=== PATIENT | female | born 1960 | race Two or more races ===

== ENCOUNTER 2018-03-08 16:47 | Emergency (ER) | payer MEDICAID ==
[~2018-03-08] VITALS: Ht 149.9 cm; Wt 65.3 kg
[2018-03-08 17:08] VITALS: BP 182/81
[2018-03-08] MEDS ORDERED: Phenazopyridine 200mg tab ORAL ONE (17:15)
--- NOTE | 2018-03-08 17:26 | Emergency Room Report ---
History of Present Illness General Chief Complaint: Female Urogenital Problems Source: Patient, Family Member Present Illness HPI Patient is a 57-year-old female presented after increased urinary frequency. Patient reports having had history of diabetes. She denies any fever or vomiting. She denies any abdominal pain. Patient reports having increased urinary urgency and frequency. She reports having a blood sugar in the 400s earlier in the day. Allergies: Coded Allergies: No Known Allergies (Unverified , 03/08/18) Patient History Past Medical History: see triage record Last Menstrual Period: na Reviewed Nursing Documentation: PMH: Agreed; PSxH: Agreed Nursing Documentation-PMH Past Medical History: No History, Except For Hx Hypertension: Yes Hx Diabetes: Yes Review of Systems All Other Systems: negative except mentioned in HPI Physical Exam Vital Signs Date Time Temp Pulse Resp B/P (MAP) Pulse Ox O2 Delivery O2 Flow Rate FiO2 03/08/18 16:48 98.2 78 18 182/81 98 Room Air Sp02 EP Interpretation: reviewed, normal General Appearance: normal inspection, well appearing, no apparent distress, alert, GCS 15 Head: atraumatic ENT: normal ENT inspection, hearing grossly normal, normal voice Neck: normal inspection, full range of motion, supple, no bony tend Respiratory: normal inspection, lungs clear, normal breath sounds, no respiratory distress, no retraction, no wheezing Cardiovascular #1: regular rate, rhythm, no edema Gastrointestinal: normal inspection, normal bowel sounds, non tender, soft, no guarding, no hernia Genitourinary: no CVA tenderness, uterus normal, other - anterior vaginal wall cystocele Musculoskeletal: normal inspection, back normal, normal range of motion Neurologic: normal inspection, alert, responsive, speech normal Psychiatric: normal inspection, judgement/insight normal, mood/affect normal Skin: normal inspection, normal color, no rash Medical Decision Making Diagnostic Impression: Primary Impression: Diabetes Additional Impressions: Urinary tract infection Cystocele ER Course The patient was noted to have increased dysuria and urinary frequency. Differential diagnosis included wasn't limited to urinary retention, urinary infection, herpes among others. Urinalysis showed evidence of urinary infection. Patient was advised follow-up with [facility] for reevaluation. Patient was given prescription for [employer] [facility] Test 03/08/18 17:36 Urine Color Pale yellow Urine Appearance Clear Urine pH 6 (4.5-8.0) Urine Specific [place] 1.015 (1.005-1.035) Urine Protein 3+ (NEGATIVE) Urine Glucose (UA) 4+ (NEGATIVE) Urine Ketones Negative (NEGATIVE) Urine Blood 2+ (NEGATIVE) Urine Nitrite Negative (NEGATIVE) Urine Bilirubin Negative (NEGATIVE) Urine Urobilinogen Normal MG/DL (0.0-1.0) Urine Leukocyte Esterase 1+ (NEGATIVE) Last Vital Signs Date Time Temp Pulse Resp B/P (MAP) Pulse Ox O2 Delivery O2 Flow Rate FiO2 03/08/18 17:08 98.2 87 18 182/81 98 Room Air Status: improved Disposition: HOME, SELF-CARE Condition: Stable Scripts Cephalexin* (KEFLEX*) 500 Mg Capsule 500 MG ORAL EVERY 6 HOURS, #28 CAP Prov: Madi Buchanan MD 03/08/18 Phenazopyridine Hcl* (PYRIDIUM*) 200 Mg Tablet 200 MG ORAL THREE TIMES A DAY, #14 TAB 0 Refills Prov: Madi Buchanan MD 03/08/18 Madi Buchanan MD Mar 08, 2018 17:26
[2018-03-08] MEDS ORDERED: PHENAZOPYRIDIN200 MG ORAL (17:43)
[2018-03-08] MEDS ORDERED: CEPHALEXIN500 MG ORAL (17:43)
[2018-03-08 17:47] LABS: APPEARANCE,URINE CLEAR; BILIRUBIN, URINE NEGATIVE (NEGATIVE); COLOR,URINE PALE YELLOW; GLUCOSE, URINE (UA) 4+ (NEGATIVE); KETONES,URINE NEGATIVE (NEGATIVE); LEUKOCYTE ESTERASE ,URINE 1+ (NEGATIVE); NITRITE,URINE NEGATIVE (NEGATIVE); PH,URINE 6 (4.5-8.0); PROTEIN,URINE 3+ (NEGATIVE); UROBILINOGEN,URINE NORMAL MG/DL (0.0-1.0)
[2018-03-08 17:59] VITALS: BP 182/81
== END 2018-03-08 18:00 | disposition home or self-care (01) ==
LOC: EMR 17:30
DX: N39.0 Urinary tract infection, site not specified (principal); N81.10 Cystocele, unspecified; E11.9 Type 2 diabetes mellitus without complications; I10 Essential (primary) hypertension
CPT/HCPCS: 81003; 82962; 99283